=== PATIENT | female | born 1965 | race African-American/Black ===

== ENCOUNTER 2017-02-21 13:26 | Emergency (ER) | payer MEDICAID, MEDICARE ==
[~2017-02-21] VITALS: Ht 170.2 cm; Wt 69.0 kg
[2017-02-21] MEDS ORDERED: ACETAMINOPHEN 500MG TABLET PO ONE (14:45)
[2017-02-21 16:28] VITALS: BP 108/54
== END 2017-02-21 16:30 | disposition home or self-care (01) ==
LOC: ER 13:58
DX: S92.911A Unspecified fracture of right toe(s), initial encounter for closed fracture (principal); S80.01XA Contusion of right knee, initial encounter; I10 Essential (primary) hypertension; F17.200 Nicotine dependence, unspecified, uncomplicated; Z90.710 Acquired absence of both cervix and uterus; W18.30XA Fall on same level, unspecified, initial encounter; Y93.89 Activity, other specified; Y92.89 Other specified places as the place of occurrence of the external cause; Y99.8 Other external cause status
CPT/HCPCS: 73502; 73560; 73630; 99284; Z7610

== ENCOUNTER 2020-07-14 11:19 | Emergency (ER) | payer MEDICAID ==
[~2020-07-14] VITALS: Ht 170.2 cm; Wt 68.0 kg
[~2020-07-14 11:19] MED LIST: ALBU90AE INH; ASPI-1497 MT; FURO-151 MT; GUAI5SYR3 MT; LOSA25TA3 MT; NICO-645 TP; P20 PO
[2020-07-14 12:31] LABS: BASOPHILS % 1.4 % (0.0-2.0); EOSINOPHILS % 1.9 % (0.0-5.0); HEMATOCRIT. 41.7 % (36.0-48.0); HEMOGLOBIN. 13.5 g/dL (12.0-16.0); LYMPHOCYTES % 40.7 % (20.0-50.0); MEAN CORPUSCULAR HEMOGLOBIN 24.3 pg (28.0-32.0); MEAN CORPUSCULAR VOLUME 75.1 fL (81.0-99.0); MEAN PLATELET VOLUME 9.2 fl (7.4-10.4); PLATELET 222 x1000/uL (130-400); RED BLOOD CELL COUNT 5.56 mill/uL (4.2-5.4); RED CELL DISTRIBUTION WIDTH 14.8 % (11.6-14.6)
[2020-07-14 12:34] LABS: CHLORIDE 109 mEq/L (98-107)
[2020-07-14 12:39] LABS: PROTHROMBIN TIME 10.7 sec (9.6-11.0)
[2020-07-14] MEDS ORDERED: MELA3TAB71 MT (15:58)
[2020-07-14] MEDS ORDERED: FURO-151 MT (15:58)
[2020-07-14 16:15] VITALS: BP 167/97
== END 2020-07-14 16:30 | disposition home or self-care (01) ==
LOC: ER 11:19
DX: J44.9 Chronic obstructive pulmonary disease, unspecified (principal); E78.00 Pure hypercholesterolemia, unspecified; I11.0 Hypertensive heart disease with heart failure; I50.9 Heart failure, unspecified; F14.10 Cocaine abuse, uncomplicated; Z90.710 Acquired absence of both cervix and uterus; Z98.890 Other specified postprocedural states; Z79.899 Other long term (current) drug therapy
CPT/HCPCS: 36415; 71045; 80053; 83880; 84484; 85025; 93005; 99285